=== PATIENT | male | born 1940 | race Caucasian/White ===

== ENCOUNTER 2018-02-10 17:18 | Inpatient (IN) ==
[2018-02-10] MEDS ORDERED: Haloperidol Lactate 5 MG/ML VIAL IVP ONE (19:20)
[2018-02-10 19:29] LABS: ABG Base Excess 11 mEq/L (-2 to 3); ABG HCO3 43 mEq/L (21-27); ABG Oxygen Saturation 93 % (95-98); ABG PCO2 93 mmHg (35-45); ABG PH 7.28 pH Units (7.32-7.45); ABG PO2 80 mmHg (85-104); ABG TCO2 46 mEq/L (20-26)
[2018-02-10] MEDS ORDERED: Naloxone 0.4 MG/ML INJ IVP PRN (19:40)
[2018-02-10 19:43] VITALS: BP 126/97
[2018-02-10] MEDS ORDERED: Ipratropium/Albuterol Neb 3 ML IH PRN (19:44)
[2018-02-10] MEDS ORDERED: Aspirin 81 MG TAB.CHEW PO ONE (19:44)
[2018-02-10] MEDS ORDERED: MethylPREDNISolone 40 MG/ML VIAL IVP SCH (19:45)
--- NOTE | 2018-02-10 19:55 | Internal Med History&Physical ---
Date of Encounter: 02/10/18 Time of Encounter: 19:30 Internal Medicine - H&P: HPI Chief complaint: SOB Admitted From: Home History of present illness: Mr. Morales is a 77 year old male with past medical history of COPD on 2L O2, remote history of MS without any PCI or CABG, tobacco abuse, presented to the [facility] emergency department with altered mental status. History is limited as patient is somewhat disoriented still. According to the daughter, patient lives in [place] but recently got kicked out by his and drove up to his daughter's home on Sunday. Since then, daughter has been noticing that the patient has been increasingly somnolent, fatigued, and weak. Patent did not have any specific complaints other than mild intermittent shortness of breath and chest pain. Unable to characterize the pain further. Daughter states that he also has "bad coughs" with sputum production. He also has a history of left lung wedge resection for "suspicious spot" that did not bottom turner to be malignant. In the emergency department, he was afebrile and hemodynamically stable. Lab work showed troponin 0.07, with EKG showing normal sinus rhythm without ST elevations or depression. No leukocytosis, BMP and lactic acid were normal. Urinalysis and UDS were both unremarkable. CT chest showed findings consistent with a previous wedge resection, no consolidation, and emphysematous changes. It also showed R LL 6 mm nodule. ABG was checked and it showed acute on chronic respiratory acidosis. He was advised to wear BiPaP prior to the transfer which he refused. He was given 1L NS, duoneb, and transferred to [facility] for further management. Past Med Surg Social Fam HX - Past Medical History Medical history: COPD, myocardial infarction Psychiatric history: no psych history - Past Surgical History Additional surgical history: right foot surgery. lung biopsy. left lung wedge resection - Social History Smoking Status: Current every day smoker Packs per day: >100 pack year, still smokes 2 sticks/day Smokeless Tobacco Status: No Alcohol use: none Drug use: none - Family History Mother History Unknown: Yes Father History Unknown: Yes Internal Medicine - H&P: Meds Albuterol Neb [Proventil Neb] 2.5 mg IH Q4HR 02/10/18 [History] Gabapentin [Neurontin] 900 mg PO TID 02/10/18 [History] Tamsulosin [Flomax] 0.4 mg PO DAILY 02/10/18 [History] Umeclidinium Brm/Vilanterol Tr [Anoro Ellipta 62.5-25 Mcg INH] 1 each IH DAILY 02/10/18 [History] 3 Allergy/AdvReac Type Severity Reaction Status Date / Time No Known Allergies Allergy Verified 02/10/18 13:15 All Systems PM: A 10-system review of systems was performed and is negative for pertinent findings except as documented above in the HPI. - Constitutional Vitals: Temp Pulse Resp BP Pulse Ox 97.7 F 82 16 126/97 96 02/10/18 19:38 02/10/18 19:38 02/10/18 19:38 02/10/18 19:38 02/10/18 19:38 Exam: General: Alert, oriented to person and place but not to time. Mild distress HEENT:EOM, pupils equal, round and reactive. Cardiovascular:Normal S1 & S2, No JVD. Pulse regular. Lungs: distant breath sounds with scattered wheezes bilaterally Abdomen:Soft, non-tender, no rigidity. Extremities:No deformity or swelling Neurological: grossly non-focal, moving all 4 limbs appropriately Skin:Normal color, no rash, no lesions. Pulses:Carotid and radial pulses normal +2. Rest of the physical exam is non contributory Internal Med - H&P Results - ABG Interpretation ABG results: 02/10/18 19:25 ABG pH 7.28 L ABG pCO2 93 H* ABG pO2 80 L ABG HCO3 43 H ABG Total CO2 46 H ABG O2 Saturation 93 L ABG Base Excess 11 H - Assessment and plan (1) Acute and chronic respiratory failure with hypercapnia Current Visit: Yes Status: Acute Assessment and plan: Likely due to COPD exacerbation, CT chest did not show any focal consolidation. ABG consistent with acute on chronic respiratory acidosis discussed at length with the patient and daughter -> full code and will try BiPaP again even if it requires the use of sedatives or restraints repeat VBG after 2 hours of BIPaP start IV solumedrol bronchodilators Q4+PRN azithromycin given the severity of his baseline COPD (2) COPD exacerbation Current Visit: Yes Status: Acute Assessment and plan: Management as above (3) Elevated troponin Current Visit: Yes Status: Acute Assessment and plan: Likely due to demand ischemia from acute on chronic respiratory failure stat dose of ASA 324mg Trend troponin Echocardiogram check A1c and lipid tomorrow (4) Tobacco abuse Current Visit: Yes Status: Acute Assessment and plan: Discussed at length about smoking cessation NRT (5) Right lower lobe pulmonary nodule Current Visit: Yes Status: Acute Assessment and plan: Follow-up outpatient CT (6) DVT prophylaxis Current Visit: Yes Status: Acute Assessment and plan: SQ heparin - Time Spent With Patient Total time spent is greater than 50% in coordination of care (as documented) at patient's floor/unit and/or counseling patient: Greater than 35 minutes
[2018-02-10] MEDS: Ipratropium/Albuterol Neb 3 ML IH SCH ×2 (19:59→23:39)
[2018-02-10] MEDS ORDERED: Azithromycin 500 MG in D5% in Water 250 ML IVPB SCH (20:00)
[2018-02-10] MEDS ORDERED: *HR* LORazepam 2 MG/ML VIAL IVP ONE (23:15)
[2018-02-11] MEDS ORDERED: *HR* Heparin 5,000 UNIT/ML VIAL SQ SCH (06:00)
[2018-02-11] MEDS ORDERED: Nicotine 21 MG PATCH.TD24 TD SCH (09:00)
== END 2018-02-11 00:13 | disposition left against medical advice (07) | DRG 189 ==
LOC: 2NENU
PROVIDERS: ADMIT Family Medicine; ATTEND Family Medicine